=== PATIENT | female | born 1950 | race African-American/Black ===

== ENCOUNTER 2022-06-13 06:25 | Emergency (ER) | payer BC, MEDICAID ==
[~2022-06-13] VITALS: Ht 167.6 cm; Wt 52.0 kg
[2022-06-13] MEDS ORDERED: ASPIRIN 81MG TABLET PO ONE (09:15)
[2022-06-13] MEDS ORDERED: OXYCODONE HCL/ACETAMINOPHEN 5/325MG TABLET PO ONE (09:45)
[2022-06-13 10:02] LABS: BASOPHILS % 0.3 % (0.0-2.0); EOSINOPHILS % 0.1 % (0.0-5.0); HEMATOCRIT. 32.2 % (36.0-48.0); HEMOGLOBIN. 10.9 g/dL (12.0-16.0); LYMPHOCYTES % 18.7 % (20.0-50.0); MEAN CORPUSCULAR HEMOGLOBIN 31.6 pg (28.0-32.0); MEAN CORPUSCULAR VOLUME 93.2 fL (81.0-99.0); MEAN PLATELET VOLUME 7.5 fl (7.4-10.4); NEUTROPHILS % 70.9 % (40.0-76.0); PLATELET 428 x1000/uL (130-400); RED BLOOD CELL COUNT 3.45 mill/uL (4.2-5.4); RED CELL DISTRIBUTION WIDTH 13.8 % (11.6-14.6)
[2022-06-13 10:12] LABS: CHLORIDE 100 mEq/L (98-107)
[2022-06-13] MEDS: ASPIRIN 81MG TABLET PO NR (11:05)
[2022-06-13] MEDS ORDERED: POTASSIUM CHLORIDE 20MEQ TABLET SR PO ONE (11:15)
[2022-06-13] MEDS ORDERED: POTASSIUM CHLORIDE INJ 40 MEQ in DEXT 5% WATER 500 ML IV ONE (11:15)
[2022-06-13] MEDS ORDERED: POTA-205 PO (11:33)
[2022-06-13] MEDS ORDERED: TOPUD PO (11:33)
[2022-06-13 11:47] VITALS: BP 141/62
== END 2022-06-13 11:45 | disposition home or self-care (01) ==
LOC: ER 06:25 → CANBEDREQ 06-14 11:39
DX: E87.6 Hypokalemia (principal); R07.89 Other chest pain; I10 Essential (primary) hypertension; Z98.1 Arthrodesis status; Z88.8 Allergy status to other drugs, medicaments and biological substances
CPT/HCPCS: 36415; 71045; 72070; 80053; 83880; 84484; 85025; 93005; 99285; J3480; J7060

== ENCOUNTER 2024-11-29 09:39 | Emergency (ER) | payer MEDICARE, MEDICAID ==
[~2024-11-29] VITALS: Ht 165.1 cm; Wt 70.0 kg
[~2024-11-29 09:39] MED LIST: GABA-529 MT; HYDR-4009 MT; POTA-205 PO; TOPUD PO
[2024-11-29 09:42] VITALS: O2SAT 100
[2024-11-29 10:34] LABS: CLARITY URINE CLEAR (CLEAR); COLOR URINE YELLOW (YELLOW); GLUCOSE URINE NEGATIVE (NEGATIVE); KETONES URINE NEGATIVE (NEGATIVE); LEUKOCYTE ESTERASE URINE 2+ (NEGATIVE); NITRITE URINE NEGATIVE (NEGATIVE); OCCULT BLOOD URINE NEGATIVE (NEGATIVE); PH URINE 6.0 (4.5-8.0); PROTEIN URINE TRACE (NEGATIVE); SPECIFIC GRAVITY URINE 1.023 (1.005-1.030); UROBILINOGEN URINE 0.2 E.U./dL (0.2-1.0)
[2024-11-29] MEDS ORDERED: CEPH500C2 MT (10:42)
[2024-11-29] MEDS: CEPHALEXIN 250MG CAPSULE PO NR (10:55)
[2024-11-29 11:00] VITALS: BP 134/71; PULSE 67; RESP 16; TEMP 37.7; O2SAT 100
[2024-11-29 11:06] LABS: BACTERIA URINE 3+; SQUAMOUS EPITHELIAL CELL URINE 3+ /lpf (RARE/1+)
[2024-11-29 11:09] LABS: YEAST URINE FEW
== END 2024-11-29 11:03 | disposition home or self-care (01) ==
LOC: ER 09:39
DX: N39.0 Urinary tract infection, site not specified (principal); I10 Essential (primary) hypertension; Z79.899 Other long term (current) drug therapy; Z88.8 Allergy status to other drugs, medicaments and biological substances
CPT/HCPCS: 81003; 99283